=== PATIENT | male | born 1995 | race Caucasian/White ===

== ENCOUNTER 2016-07-06 19:04 | Inpatient (IN) | payer OTHER ==
[~2016-07-06] VITALS: Ht 170.2 cm; Wt 84.2 kg
[~2016-07-06 19:04] MED LIST: NOCURR
[2016-07-06] MEDS ORDERED: VANCOMYCIN HCL 1 GM/D5% WATER 200 ML IV ONE (20:00)
[2016-07-06] MEDS ORDERED: SODIUM CHLORIDE 0.9% 1,000 ML IV ONE (20:00)
[2016-07-06] MEDS ORDERED: ACETAMINOPHEN 1000 MG/ISO-OSM 100 ML IV ONE (20:00)
[2016-07-06 20:21] LABS: BASOPHILS # (AUTO) 0.17 K/uL (0.00-0.20); BASOPHILS % (AUTO) 1.4 % (0.0-2.0); EOSINOPHILS # (AUTO) 0.19 K/uL (0.00-0.70); EOSINOPHILS % (AUTO) 1.54 % (1.0-6.0); HEMATOCRIT 40.5 % (41-53); HEMOGLOBIN 13.8 g/dL (13.5-17.5); LYMPHOCYTES # (AUTO) 1.5 K/uL (1.0-4.8); MEAN CORPUSCULAR HEMOGLOBIN 30.7 pg (26.0-34.0); MEAN CORPUSCULAR HGB CONC 33.9 G/dL (31.0-37.0); MEAN CORPUSCULAR VOLUME 91 fL (80-100); MONOCYTES # (AUTO) 1.2 K/uL (0.1-1.0); MONOCYTES % (AUTO) 9.4 % (2.0-9.0); NEUTROPHILS # (AUTO) 9.5 K/uL (1.8-7.7); NEUTROPHILS % (AUTO) 75.7 % (40.0-70.0); PLATELET COUNT (AUTO) 173 K/uL (150-450); RED BLOOD CELL COUNT(AUTO) 4.48 MIL/uL (4.50-5.90); WHITE BLOOD COUNT (AUTO) 12.6 K/uL (4.5-11.0)
[2016-07-06 20:35] LABS: ANION GAP 11 mmol/L (8-16); CALCIUM, TOTAL 8.7 mg/dL (8.8-10.5); CARBON DIOXIDE 26 mmol/L (22-29); CHLORIDE 100 mmol/L (98-107); CREATININE 0.97 mg/dL (0.60-1.30); GLOMERULAR FILTR. RATE CALC > 60 mL/min (>60); POTASSIUM 3.9 mmol/L (3.5-5.1); SODIUM SERUM 137 mmol/L (136-145); UREA NITROGEN, BLOOD 9 mg/dL (7-18)
[2016-07-06 20:42] LABS: ALANINE AMINOTRANSFERASE 51 U/L (12-78); ALBUMIN 3.9 g/dL (3.4-5.0); ASPARTATE AMINOTRANSFERASE 22 U/L (15-37); BILIRUBIN,TOTAL 0.6 mg/dL (0.1-1.0); TOTAL PROTEIN, SERUM 7.6 g/dL (6.4-8.2)
[2016-07-06 20:49] LABS: LACTIC ACID 1.1 mmol/L (0.4-2.0)
[2016-07-06] MEDS ORDERED: DiphenhydrAMINE HCL 50 MG/ML VIAL IVP ONE (21:00)
[2016-07-06] MEDS ORDERED: ACETAMINOPHEN 325 MG TABLET PO PRN (21:45)
[2016-07-06] MEDS ORDERED: ONDANSETRON HCL 4 MG/2 ML VIAL IVP PRN (21:45)
[2016-07-06 23:25] VITALS: BP 129/71
[2016-07-06] MEDS ORDERED: INFLUENZA VIRUS VACCINE QVS 2016-17 (3YR+)/PF 60 MCG/0.5 ML SYRINGE IM ONE (23:45)
[2016-07-07] MEDS ORDERED: OxyCODONE HCL/ACETAMINOPHEN 5-325 MG TABLET PO PRN (00:15)
[2016-07-07] MEDS ORDERED: ONDANSETRON HCL 4 MG/2 ML VIAL IVP PRN (00:15)
[2016-07-07] MEDS: DOCUSATE SODIUM 100 MG CAPSULE PO SCH ×3 (00:15→20:08)
[2016-07-07] MEDS ORDERED: 0.9% SODIUM CHLORIDE 10 ML SYRINGE IVP PRN (00:15)
[2016-07-07] MEDS: CEFTAROLINE 600 MG/D5W 250 ML IV SCH ×2 (00:25→14:24)
[2016-07-07 06:19] VITALS: BP 121/71
[2016-07-07] MEDS: OxyCODONE HCL/ACETAMINOPHEN 5-325 MG TABLET PO PRN ×2 (06:31→20:09)
[2016-07-07 08:35] VITALS: BP 115/75
[2016-07-07] MEDS ORDERED: CEFTAROLINE 600 MG/D5W 250 ML IV ONE (09:00)
[2016-07-07] MEDS: PANTOPRAZOLE SODIUM 40 MG/VIAL IVP SCH (09:01)
[2016-07-07 11:20] VITALS: BP 114/71
[2016-07-07 16:03] VITALS: BP 135/72
[2016-07-07 21:14] VITALS: BP 119/80
[2016-07-07 23:17] VITALS: BP 112/67
[2016-07-08] MEDS: CEFTAROLINE 600 MG/D5W 250 ML IV SCH ×2 (02:11→13:05)
[2016-07-08] MEDS: OxyCODONE HCL/ACETAMINOPHEN 5-325 MG TABLET PO PRN ×3 (04:26→20:29)
[2016-07-08 05:35] VITALS: BP 116/70
[2016-07-08 06:39] LABS: BASOPHILS % (AUTO) 0.3 % (0.0-2.0); EOSINOPHILS % (AUTO) 2.8 % (1.0-6.0); HEMATOCRIT 39.8 % (41-53); HEMOGLOBIN 13.3 g/dL (13.5-17.5); LYMPHOCYTES # (AUTO) 1.3 K/uL (1.0-4.8); LYMPHOCYTES % (AUTO) 13.2 % (22.0-44.0); MEAN CORPUSCULAR HEMOGLOBIN 30.5 pg (26.0-34.0); MEAN CORPUSCULAR HGB CONC 33.5 G/dL (31.0-37.0); MEAN CORPUSCULAR VOLUME 91 fL (80-100); MONOCYTES # (AUTO) 1.2 K/uL (0.1-1.0); MONOCYTES % (AUTO) 11.9 % (2.0-9.0); NEUTROPHILS # (AUTO) 7.3 K/uL (1.8-7.7); NEUTROPHILS % (AUTO) 71.8 % (40.0-70.0); PLATELET COUNT (AUTO) 175 K/uL (150-450); RED BLOOD CELL COUNT(AUTO) 4.38 MIL/uL (4.50-5.90); RED CELL DISTRIBUTION WIDTH 12.9 % (11.5-14.5); WHITE BLOOD COUNT (AUTO) 10.2 K/uL (4.5-11.0)
[2016-07-08 07:03] LABS: ANION GAP 7 mmol/L (8-16); CALCIUM, TOTAL 8.7 mg/dL (8.8-10.5); CARBON DIOXIDE 29 mmol/L (22-29); CHLORIDE 102 mmol/L (98-107); CREATININE 0.88 mg/dL (0.60-1.30); GLOMERULAR FILTR. RATE CALC > 60 mL/min (>60); POTASSIUM 3.8 mmol/L (3.5-5.1); SODIUM SERUM 138 mmol/L (136-145); UREA NITROGEN, BLOOD 4 mg/dL (7-18)
[2016-07-08 08:01] VITALS: BP 101/52
[2016-07-08] MEDS: DOCUSATE SODIUM 100 MG CAPSULE PO SCH ×2 (09:03→20:43)
[2016-07-08] MEDS: PANTOPRAZOLE SODIUM 40 MG/VIAL IVP SCH (09:03)
[2016-07-08 11:30] VITALS: BP 112/69
[2016-07-08 20:22] VITALS: BP 126/62
[2016-07-08 23:37] VITALS: BP 116/66
[2016-07-09] MEDS: CEFTAROLINE 600 MG/D5W 250 ML IV SCH ×2 (00:40→14:06)
[2016-07-09 04:19] VITALS: BP 103/69
[2016-07-09 07:29] VITALS: BP 120/82
[2016-07-09] MEDS: DOCUSATE SODIUM 100 MG CAPSULE PO SCH ×2 (08:28→20:19)
[2016-07-09] MEDS: PANTOPRAZOLE SODIUM 40 MG/VIAL IVP SCH (08:28)
[2016-07-09] MEDS: OxyCODONE HCL/ACETAMINOPHEN 5-325 MG TABLET PO PRN ×2 (11:20→19:57)
[2016-07-09 12:00] VITALS: BP 114/67
[2016-07-09 15:49] VITALS: BP 103/67
[2016-07-09] MEDS ORDERED: IOVERSOL 320 MG/ML 100 ML VIAL ONE (17:16)
[2016-07-09] MEDS ORDERED: SODIUM CHLORIDE 0.9% 100 ML ONE (17:16)
[2016-07-09 19:23] VITALS: BP 135/76
[2016-07-09 23:14] VITALS: BP 113/71
[2016-07-10] MEDS: CEFTAROLINE 600 MG/D5W 250 ML IV SCH (01:17)
[2016-07-10 04:37] VITALS: BP 122/61
[2016-07-10 07:30] VITALS: BP 107/76
[2016-07-10] MEDS: PANTOPRAZOLE SODIUM 40 MG/VIAL IVP SCH (08:29)
[2016-07-10] MEDS: DOCUSATE SODIUM 100 MG CAPSULE PO SCH (08:29)
[2016-07-10 12:09] VITALS: BP 115/65
[2016-07-10] MEDS ORDERED: BACTDSB PO (12:51)
== END 2016-07-10 14:35 | disposition home or self-care (01) | DRG 720 ==
LOC: EMS 19:05 → 6N 21:30
PROVIDERS: ADMIT Internal Medicine; ATTEND Internal Medicine
PROC: 3E0234Z Introduction of Serum, Toxoid and Vaccine into Muscle, Percutaneous Approach (ICD-10-PCS; principal; 2016-07-07)
DX: A41.9 Sepsis, unspecified organism (principal); L03.115 Cellulitis of right lower limb; L29.8 Other pruritus; T36.8X5A Adverse effect of other systemic antibiotics, initial encounter; Z23 Encounter for immunization; Z88.1 Allergy status to other antibiotic agents; X58.XXXA Exposure to other specified factors, initial encounter; Y93.89 Activity, other specified; Y92.238 Other place in hospital as the place of occurrence of the external cause; Y99.8 Other external cause status
CPT/HCPCS: 73701; 83605; 90471; 96365; 96366; 96368; 96375; 99285; C9113; J0131; J0712; J1200; J3370; J7030; J7050

== ENCOUNTER 2017-09-09 22:52 | Emergency (ER) | payer OTHER ==
[~2017-09-09] VITALS: Ht 170.2 cm; Wt 81.5 kg
[~2017-09-09 22:52] MED LIST changes: +BACTDSB PO; -NOCURR
[2017-09-09 23:09] VITALS: BP 142/85
[2017-09-09] MEDS ORDERED: IBUP-2071 PO (23:13)
[2017-09-09] MEDS ORDERED: AMOX250T PO (23:13)
== END 2017-09-10 01:00 | disposition left against medical advice (07) ==
LOC: EMS 22:53
DX: Z53.21 Procedure and treatment not carried out due to patient leaving prior to being seen by health care provider (principal)

== ENCOUNTER 2018-03-11 11:04 | Emergency (ER) | payer OTHER ==
[~2018-03-11] VITALS: Ht 170.2 cm; Wt 81.8 kg
[~2018-03-11 11:04] MED LIST changes: +AMOX250T PO; -BACTDSB PO; +IBUP-2071 PO
[2018-03-11] MEDS: SODIUM CHLORIDE 0.9% 1,000 ML IV ONE (13:09)
[2018-03-11] MEDS: ONDANSETRON HCL 4 MG/2 ML VIAL IVP ONE (13:10)
[2018-03-11 13:24] LABS: BASOPHILS % (AUTO) 0.4 % (0.0-2.0); EOSINOPHILS % (AUTO) 0.5 % (1.0-6.0); HEMATOCRIT 49.3 % (41-53); HEMOGLOBIN 16.9 g/dL (13.5-17.5); LYMPHOCYTES # (AUTO) 0.4 K/uL (1.0-4.8); LYMPHOCYTES % (AUTO) 2.6 % (22.0-44.0); MEAN CORPUSCULAR HEMOGLOBIN 30.2 pg (26.0-34.0); MEAN CORPUSCULAR HGB CONC 34.3 G/dL (31.0-37.0); MEAN CORPUSCULAR VOLUME 88 fL (80-100); MONOCYTES # (AUTO) 0.4 K/uL (0.1-1.0); MONOCYTES % (AUTO) 2.8 % (2.0-9.0); NEUTROPHILS # (AUTO) 14.9 K/uL (1.8-7.7); PLATELET COUNT (AUTO) 210 K/uL (150-450); RED BLOOD CELL COUNT(AUTO) 5.61 MIL/uL (4.50-5.90); RED CELL DISTRIBUTION WIDTH 13.7 % (11.5-14.5)
[2018-03-11 13:26] LABS: NEUTROPHILS % (AUTO) 93.7 % (40.0-70.0)
[2018-03-11 13:27] LABS: APPEARANCE,URINE CLEAR (CLEAR); GLUCOSE, URINE (UA) NEGATIVE (NEGATIVE); KETONES,URINE TRACE mg/dL (NEGATIVE); LEUKOCYTE ESTERASE ,URINE NEGATIVE (NEGATIVE); NITRATE,URINE NEGATIVE (NEGATIVE); OCCULT BLOOD,URINE NEGATIVE (NEGATIVE); UROBILINOGEN,URINE 0.2 mg/dL (<=1.0)
[2018-03-11 13:33] LABS: BILIRUBIN,URINE PRELIM. POSITIVE (NEGATIVE); PROTEIN,URINE NEGATIVE (NEGATIVE)
[2018-03-11 13:48] LABS: ANION GAP 12 mmol/L (8-16); CALCIUM, TOTAL 9.1 mg/dL (8.8-10.5); CARBON DIOXIDE 24 mmol/L (22-29); CHLORIDE 101 mmol/L (98-107); CREATININE 0.93 mg/dL (0.60-1.30); GLOMERULAR FILTR. RATE CALC > 60 mL/min (>60); GLUCOSE,RANDOM 112 mg/dL (70-110); POTASSIUM 3.9 mmol/L (3.5-5.1); SODIUM SERUM 137 mmol/L (136-145); UREA NITROGEN, BLOOD 11 mg/dL (7-18)
[2018-03-11 13:53] LABS: ALANINE AMINOTRANSFERASE 145 U/L (12-78); ALBUMIN 4.6 g/dL (3.4-5.0); ALKALINE PHOSPHATASE 106 U/L (46-116); ASPARTATE AMINOTRANSFERASE 83 U/L (15-37); BILIRUBIN,TOTAL 1.1 mg/dL (0.1-1.0); LIPASE 65 U/L (73-393); TOTAL PROTEIN, SERUM 8.7 g/dL (6.4-8.2)
[2018-03-11] MEDS: DIPHENOXYLATE/ATROP 2.5-0.025 MG TABLET PO ONE (14:34)
[2018-03-11] MEDS: ACETAMINOPHEN 500 MG TABLET PO ONE (14:34)
[2018-03-11 15:13] VITALS: BP 136/78
== END 2018-03-11 15:17 | disposition home or self-care (01) ==
LOC: EMS 11:06
DX: K52.9 Noninfective gastroenteritis and colitis, unspecified (principal); Z88.8 Allergy status to other drugs, medicaments and biological substances
CPT/HCPCS: 36415; 80053; 81003; 83690; 85025; 96361; 96374; 99284; J2405; J7030

== ENCOUNTER 2018-05-03 18:29 | Emergency (ER) | payer OTHER ==
[~2018-05-03] VITALS: Ht 172.7 cm; Wt 81.8 kg
[2018-05-03] MEDS ORDERED: ALBU8.5H8 IH (19:33)
[2018-05-03] MEDS ORDERED: ACETAMINOPHEN 500 MG TABLET PO ONE (21:00)
[2018-05-03] MEDS ORDERED: ALBUTEROL SULFATE HFA 90 MCG/PUFF 8 GM INHALER IH ONE (21:00)
[2018-05-03 21:22] VITALS: BP 121/69
== END 2018-05-03 21:24 | disposition home or self-care (01) ==
LOC: EMS 18:31
DX: R05 Cough (principal); R07.89 Other chest pain; R06.02 Shortness of breath; Z88.1 Allergy status to other antibiotic agents
CPT/HCPCS: J3535

== ENCOUNTER 2021-06-01 09:41 | Emergency (ER) | payer OTHER ==
[~2021-06-01] VITALS: Ht 172.7 cm; Wt 81.8 kg
[~2021-06-01 09:41] MED LIST changes: +ALBU8.5H8 IH; -AMOX250T PO; -IBUP-2071 PO
[2021-06-01 11:22] LABS: COVID AG,FIA SOURCE NASAL SWAB
[2021-06-01] MEDS ORDERED: ACETAMINOPHEN 325 MG TABLET PO ONE (12:00)
[2021-06-01 12:26] LABS: INFLUENZA TYPE A NEGATIVE FOR TYPE A (NEGATIVE); INFLUENZA TYPE B NEGATIVE FOR TYPE B (NEGATIVE)
[2021-06-01 13:05] VITALS: BP 126/80
== END 2021-06-01 13:12 | disposition home or self-care (01) ==
LOC: EMS 10:10
DX: B34.9 Viral infection, unspecified (principal); Z20.822 Contact with and (suspected) exposure to COVID-19; Z88.1 Allergy status to other antibiotic agents; Z79.899 Other long term (current) drug therapy
CPT/HCPCS: 71045; 87426; 87804; 99284; U0003; C9803